=== PATIENT | male | born 1985 | race African-American/Black ===

== ENCOUNTER 2020-01-30 18:01 | Inpatient (IN) | payer OTHER ==
[2020-01-30 20:21] VITALS: BMI 24.0
--- NOTE | 2020-01-30 21:28 | HP ---
CIWA Score Nausea/Vomitin-Mild Nausea/No Vomiting Muscle Tremors: None Anxiety: 3 Agitation: 1-Slight > Activity Paroxysmal Sweats: No Perspiration Orientation: 1-Uncertain about Date Tacttile Disturbances: 0-None Auditory Disturbances: 0-None Visual Disturbances: 1-Very Mild Sensitivity Headache: 1-Very Mild CIWA-Ar Total Score: 8 - Admission Criteria OASAS Guidelines: Admission for Medically Managed Detox: Requires at least one of the followin. CIWA greater than 12 2. Seizures within the past 24 hours 3. Delirium tremens within the past 24 hours 4. Hallucinations within the past 24 hours 5. Acute intervention needed for co occurring medical disorder 6. Acute intervention needed for co occurring psychiatric disorder 7. Severe withdrawal that cannot be handled at a lower level of care (continued vomiting, continued diarrhea, abnormal vital signs) requiring intravenous medication and/or fluids 8. Admitting History and Physical - Smoking History Smoking history: Current every day smoker Have you smoked in the past 12 months: No Aproximately how many cigarettes per day: 30 Admission ROS [facility] Allergies/Adverse Reactions: Allergies Allergy/AdvReac Type Severity Reaction Status Date / Time No Known Allergies Allergy Verified 01/30/20 20:15 History of Present Illness: 34 Y.O. MALE REQUESTING DETOX FROM ALCOHOL USE , REPORTS 2 PINTS VODKA AND 2 LARGE CANS OF BEER . LATEST USE WAS TODAY 7 AM , FIRST AGE OF USE 12 , INCREASED SINCE AGE 20 , HAS HAD WITHDRAWAL SEIZURES, MOST RECENTLY 2 YEARS AGO , WAS ON MEDS IN THE PAST , STOPPED TAKING IT DUE TO " BAD REACTI ON" . REPORTS BLACKOUTS , OCCASIONAL FALLS , DENIES INJURIES TO SELF OR OTHERS. COCAINE : 1 GR /DAY SINCE AGE 20 VIA SMOKING NOW , INITIALLY VIA INHALATION UNTIL HIS 30'S CANNABIS : DAILY USE SINCE AGE 12 , STATES " IT HELPS TO CALM ME DOWN " TOBACCO : 2 PPD , REQUESTING NRT W/ PATCH pmhx : UMBILICAL HERNIA S/P SURGERY @ AGE 3 , HTN PSYCH : SAD ON HALDOL , DENIES SA/HI/GONZALEZ , ADMITS TO SI WITH NO PLAN IN THE PAST , DENIES CURRENT SI Exam Limitations: Clinical Condition - Review of Systems Constitutional: No Symptoms Reported EENT: reports: No Symptoms Reported, Other (GLASSES) Respiratory: reports: Shortness of Breath (WHEN SMOKING CRACK COCAINE) Cardiac: reports: No Symptoms Reported GI: reports: Nausea : reports: No Symptoms Reported Musculoskeletal: reports: Other (LEFT LATERAL CHEST WALL WITH DEEP INSPIRAION SINCE TODAY WHEN HE STOPPED DRINKING ALCOHOL.) Integumentary: reports: No Symptoms Reported Neuro: reports: Headache Endocrine: reports: No Symptoms Reported Hematology: reports: No Symptoms Reported Psychiatric: reports: Anxious, Disorientated Patient History - Patient Medical History Hx Asthma: No Hx Chronic Obstructive Pulmonary Disease (COPD): No Hx Cardiac Disorders: No Hx Hypertension: No Hx Seizures: No Hx Diabetes: No Hx Gastrointestinal Disorders: No Hx Genitourinary Disorders: No Hx Sexually Transmitted Disorders: No Hx Renal Disease (ESRD): No Hx Depression: Yes Hx Suicide Attempt: No Hx Schizophrenia: No - Patient Surgical History Past Surgical History: Yes Hx Neurologic Surgery: No Hx Cataract Extraction: No Hx Cardiac Surgery: No Hx Lung Surgery: No Hx Breast Surgery: No Hx Breast Biopsy: No Hx Abdominal Surgery: No Hx Appendectomy: No Hx Cholecystectomy: No Hx Genitourinary Surgery: No Hx Section: No Hx Orthopedic Surgery: No Other Surgical History: HERNIA @ 3YRS - PPD History Previous Implant?: Yes Documented Results: Positive w/o proof - Smoking Cessation Smoking history: Current every day smoker Have you smoked in the past 12 months: No Aproximately how many cigarettes per day: 30 Hx Chewing Tobacco Use: No Initiated information on smoking cessation: Yes 'Breaking Loose' booklet given: 01/30/20 - Substances abused Alcohol Substance route: Oral Frequency: Daily Amount used: LIQUOR- 2, BEER- 3 (24oz) Age of first use: 12 Date of last use: 01/30/20 Admission Physical Exam S - Vital Signs Vital Signs: Vital Signs - 24 hr 01/30/20 01/30/20 20:16 20:29 Temperature 97.3 F L 97.3 F L Pulse Rate 78 78 Respiratory 18 18 Rate Blood Pressure 129/81 129/81 - Physical General Appearance: Yes: Mild Distress, Anxious HEENTM: Yes: EOMI, Hearing grossly Normal, Normocephalic, Normal Voice Respiratory: Yes: Chest Non-Tender, No Respiratory Distress, No Accessory Muscle Use, Rales Neck: Yes: No masses,lesions,Nodules, Trachea in good position Cardiology: Yes: Regular Rhythm, Regular Rate, S1, S2 Abdominal: Yes: Non Tender, Soft Back: Yes: Normal Inspection Musculoskeletal: Yes: full range of Motion, Gait Steady Extremities: Yes: Normal Capillary Refill, Normal Inspection, Normal Range of Motion, Non-Tender Neurological: Yes: Alert, Disoriented, Depressed Affect Integumentary: Yes: Warm - Diagnostic (1) Alcohol use disorder Current Visit: Yes Status: Chronic (2) Cocaine abuse Current Visit: Yes Status: Chronic (3) Cannabis dependence Current Visit: Yes Status: Chronic (4) Nicotine dependence Current Visit: Yes Status: Chronic Qualifiers: Nicotine product type: cigarettes Breathalyzer - Breathalyzer Breathalyzer: 0 Urine Drug Screen - Test Device Lot number: [id number] Expiration date: 08/10/20 - Control Is test valid?: Yes - Results Drug screen NEGATIVE: No Urine drug screen results: THC-Marijuana, SMITH-Cocaine Inpatient Rehab Admission - Rehab Decision to Admit Inpatient rehab admission?: No
[2020-01-30] MEDS ORDERED: MENTHOL/PHENOL 1 EACH UD MM PRN (21:52)
[2020-01-30] MEDS ORDERED: MAG HYDROX/AL HYDROX/SIMETH 30 ML UNIT-DOSE CUP PO PRN (21:52)
[2020-01-30] MEDS ORDERED: NICOTINE POLACRILEX 2 MG GUM BUC PRN (21:52)
[2020-01-30] MEDS ORDERED: hydrOXYzine PAMOATE 25 MG CAPSULE (FP) PO PRN (21:52)
[2020-01-30] MEDS ORDERED: IBUPROFEN 400 MG TABLET (FP) PO PRN (21:52)
[2020-01-30] MEDS ORDERED: MAGNESIUM HYDROX 2400MG/30ML ORAL SUSPENSION 30 ML CUP PO PRN (21:52)
[2020-01-30] MEDS ORDERED: METHOCARBAMOL 500 MG TABLET PO PRN (21:52)
[2020-01-30] MEDS ORDERED: MAGNESIUM CITRATE 300 ML BOTTLE PO PRN (21:52)
[2020-01-30] MEDS ORDERED: ACETAMINOPHEN 325 MG TABLET (FP) PO PRN ×2 (21:52)
[2020-01-30] MEDS ORDERED: BISMUTH SUBSALICYLATE 524 MG/30 ML UD PO PRN (21:52)
[2020-01-30] MEDS ORDERED: MELATONIN 5 MG TABLETS PO SCH (22:00)
[2020-01-30] MEDS ORDERED: chlordiazePOXIDE HCL 10 MG CAPSULE PO PRN (22:01)
[2020-01-30] MEDS ORDERED: ONDANSETRON *ODT* 4 MG TABLET SL PRN (22:11)
[2020-01-30] MEDS ORDERED: chlordiazePOXIDE HCL 25 MG CAPSULE PO ONE (22:15)
[2020-01-30] MEDS: THIAMINE HCL 100 MG TABLET (FP) PO SCH (23:47)
[2020-01-31] MEDS: chlordiazePOXIDE HCL 25 MG CAPSULE PO SCH ×3 (06:34→21:37)
[2020-01-31 10:12] LABS: HEMATOCRIT 40.8 % (35.4-49); HEMOGLOBIN 13.7 GM/dL (11.7-16.9); MCH 28.7 pg (25.7-33.7); MCHC 33.6 g/dl (32.0-35.9); MEAN CELL VOLUME 85.6 fl (80-96); MEAN PLT VOLUME 7.7 fl (7.5-11.1); PLATELET COUNT 274 K/MM3 (134-434); RBC 4.76 M/mm3 (4.00-5.60); RDW 15.2 % (11.9-15.9); WHITE BLOOD COUNT 4.1 K/mm3 (4.0-10.0)
[2020-01-31 10:22] LABS: ALBUMIN 3.6 g/dl (3.4-5.0); BILIRUBIN,TOTAL 1.2 mg/dL (0.2-1); BLOOD UREA NITROGEN 19.8 mg/dL (7-18); CALCIUM 8.6 mg/dL (8.5-10.1); CREATININE 1.2 mg/dL (0.55-1.3); POTASSIUM 3.9 mmol/L (3.5-5.1); TOT PROT 6.6 g/dl (6.4-8.2)
[2020-01-31] MEDS: NICOTINE 21 MG/24 HOURS TOPICAL PATCH TD SCH (10:32)
[2020-01-31] MEDS: amLODIPine BESYLATE 10 MG TABLET (FP) PO SCH (10:32)
[2020-01-31] MEDS: PRENATAL VITAMINS W/ FOLIC ACID TABLET (FP) PO SCH (10:32)
--- NOTE | 2020-01-31 10:34 | PN ---
S CIWA - CIWA Score Nausea/Vomitin Muscle Tremors: 2 Anxiety: 2 Agitation: 2 Paroxysmal Sweats: No Perspiration Orientation: 0-Oriented Tacttile Disturbances: 1-Very Mild Itch/Numbness Auditory Disturbances: 0-None Visual Disturbances: 0-None Headache: 1-Very Mild CIWA-Ar Total Score: 10 S Progress Note (SOAP) Subjective: alert,irritable,anxious,interrupted sleep,tremor,aching pain in the body Objective: 01/31/20 10:32 Vital Signs Temperature 97.3 F L 01/31/20 05:32 Pulse Rate 49 L 01/31/20 05:32 Respiratory Rate 18 01/31/20 05:32 Blood Pressure 115/61 01/31/20 05:32 O2 Sat by Pulse Oximetry (%) 97 01/31/20 05:32 Laboratory Last Values WBC 4.1 K/mm3 (4.0-10.0) 01/31/20 08:00 RBC 4.76 M/mm3 (4.00-5.60) 01/31/20 08:00 Hgb 13.7 GM/dL (11.7-16.9) 01/31/20 08:00 Hct 40.8 % (35.4-49) 01/31/20 08:00 MCV 85.6 fl (80-96) 01/31/20 08:00 MCH 28.7 pg (25.7-33.7) 01/31/20 08:00 MCHC 33.6 g/dl (32.0-35.9) 01/31/20 08:00 RDW 15.2 % (11.9-15.9) 01/31/20 08:00 Plt Count 274 K/MM3 (134-434) 01/31/20 08:00 MPV 7.7 fl (7.5-11.1) 01/31/20 08:00 Sodium 145 mmol/L (136-145) 01/31/20 08:00 Potassium 3.9 mmol/L (3.5-5.1) 01/31/20 08:00 Chloride 108 mmol/L (98-107) H 01/31/20 08:00 Carbon Dioxide 30 mmol/L (21-32) 01/31/20 08:00 Anion Gap 7 MMOL/L (8-16) L 01/31/20 08:00 BUN 19.8 mg/dL (7-18) H 01/31/20 08:00 Creatinine 1.2 mg/dL (0.55-1.3) 01/31/20 08:00 Est GFR (CKD-EPI)AfAm 90.26 01/31/20 08:00 Est GFR (CKD-EPI)NonAf 77.87 01/31/20 08:00 Random Glucose 113 mg/dL (74-106) H 01/31/20 08:00 Calcium 8.6 mg/dL (8.5-10.1) 01/31/20 08:00 Total Bilirubin 1.2 mg/dL (0.2-1) H 01/31/20 08:00 AST 36 U/L (15-37) 01/31/20 08:00 ALT 27 U/L (13-61) 01/31/20 08:00 Alkaline Phosphatase 90 U/L (45-117) 01/31/20 08:00 Total Protein 6.6 g/dl (6.4-8.2) 01/31/20 08:00 Albumin 3.6 g/dl (3.4-5.0) 01/31/20 08:00 Assessment: 01/31/20 10:32 withdrawal symptom Plan: continue detox librium regime,fasting glucose,blirubin,bmp in am,encourage oral fluid,hydration
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
--- NOTE | 2020-01-31 12:14 | EKG ---
Test Reason : Blood Pressure : / mmHG Vent. Rate : 066 BPM Atrial Rate : 066 BPM P-R Int : 174 ms QRS Dur : 102 ms QT Int : 426 ms P-R-T Axes : 052 076 037 degrees QTc Int : 446 ms NORMAL SINUS RHYTHM NORMAL ECG NO PREVIOUS ECGS AVAILABLE Confirmed by CAROLYN ROCK, VILMA ([id number]) on 01/31/2020 12:14:14 PM Referred By: Thomas Dill Confirmed By:VILMA LEON MD
[2020-01-31] MEDS: HALOPERIDOL 5 MG TABLET PO SCH ×2 (12:53→21:37)
[2020-01-31] MEDS: TRIHEXYPHENIDYL HCL 2 MG TABLET PO SCH ×2 (14:30→21:39)
[2020-01-31] MEDS: THIAMINE HCL 100 MG TABLET (FP) PO SCH (21:37)
[2020-01-31] MEDS: traZODone HCL 50 MG TABLET (FP) PO SCH (21:37)
[2020-02-01] MEDS ORDERED: chlordiazePOXIDE HCL 10 MG CAPSULE PO PRN
[2020-02-01] MEDS: chlordiazePOXIDE 5 MG CAPSULE PO SCH ×3 (06:17→22:11)
[2020-02-01 10:39] LABS: BLOOD UREA NITROGEN 10.9 mg/dL (7-18); POTASSIUM 4.7 mmol/L (3.5-5.1)
[2020-02-01 10:41] LABS: BILIRUBIN,TOTAL 0.8 mg/dL (0.2-1)
[2020-02-01] MEDS: amLODIPine BESYLATE 10 MG TABLET (FP) PO SCH (11:23)
[2020-02-01] MEDS: PRENATAL VITAMINS W/ FOLIC ACID TABLET (FP) PO SCH (11:24)
[2020-02-01] MEDS: TRIHEXYPHENIDYL HCL 2 MG TABLET PO SCH ×2 (11:24→22:10)
[2020-02-01] MEDS: NICOTINE 21 MG/24 HOURS TOPICAL PATCH TD SCH (11:24)
[2020-02-01] MEDS: HALOPERIDOL 5 MG TABLET PO SCH ×2 (11:24→22:10)
--- NOTE | 2020-02-01 12:40 | PN ---
[facility] CIWA - CIWA Score Nausea/Vomitin-Mild Nausea/No Vomiting Muscle Tremors: 2 Anxiety: 2 Agitation: 2 Paroxysmal Sweats: No Perspiration Orientation: 0-Oriented Tacttile Disturbances: 1-Very Mild Itch/Numbness Auditory Disturbances: 0-None Visual Disturbances: 0-None Headache: 2-Mild CIWA-Ar Total Score: 10 S Progress Note (SOAP) Subjective: alert,irritable,anxious,interrupted sleep,aching pain in the body Objective: 02/01/20 12:38 Vital Signs Temperature 97.1 F L 02/01/20 05:10 Pulse Rate 68 02/01/20 05:10 Respiratory Rate 16 02/01/20 05:10 Blood Pressure 116/68 02/01/20 05:10 O2 Sat by Pulse Oximetry (%) 100 02/01/20 05:10 Laboratory Last Values WBC 4.1 K/mm3 (4.0-10.0) 01/31/20 08:00 RBC 4.76 M/mm3 (4.00-5.60) 01/31/20 08:00 Hgb 13.7 GM/dL (11.7-16.9) 01/31/20 08:00 Hct 40.8 % (35.4-49) 01/31/20 08:00 MCV 85.6 fl (80-96) 01/31/20 08:00 MCH 28.7 pg (25.7-33.7) 01/31/20 08:00 MCHC 33.6 g/dl (32.0-35.9) 01/31/20 08:00 RDW 15.2 % (11.9-15.9) 01/31/20 08:00 Plt Count 274 K/MM3 (134-434) 01/31/20 08:00 MPV 7.7 fl (7.5-11.1) 01/31/20 08:00 Sodium 142 mmol/L (136-145) 02/01/20 08:15 Potassium 4.7 mmol/L (3.5-5.1) 02/01/20 08:15 Chloride 108 mmol/L (98-107) H 02/01/20 08:15 Carbon Dioxide 27 mmol/L (21-32) 02/01/20 08:15 Anion Gap 7 MMOL/L (8-16) L 02/01/20 08:15 BUN 10.9 mg/dL (7-18) 02/01/20 08:15 Creatinine 1.0 mg/dL (0.55-1.3) 02/01/20 08:15 Est GFR (CKD-EPI)AfAm 112.51 02/01/20 08:15 Est GFR (CKD-EPI)NonAf 97.08 02/01/20 08:15 Random Glucose 63 mg/dL (74-106) L 02/01/20 08:15 Fasting Glucose 63 mg/dL (74-106) L 02/01/20 08:15 Calcium 9.0 mg/dL (8.5-10.1) 02/01/20 08:15 Total Bilirubin 0.8 mg/dL (0.2-1) 02/01/20 08:15 AST 36 U/L (15-37) 01/31/20 08:00 ALT 27 U/L (13-61) 01/31/20 08:00 Alkaline Phosphatase 90 U/L (45-117) 01/31/20 08:00 Total Protein 6.6 g/dl (6.4-8.2) 01/31/20 08:00 Albumin 3.6 g/dl (3.4-5.0) 01/31/20 08:00 Syphilis Serology Non-reactive (NONREACTIVE) 01/31/20 08:00 Assessment: 02/01/20 12:39 withdrawal symptom Plan: continue detox librium regimen
[2020-02-01] MEDS: THIAMINE HCL 100 MG TABLET (FP) PO SCH (22:10)
[2020-02-01] MEDS: traZODone HCL 50 MG TABLET (FP) PO SCH (22:11)
[2020-02-02] MEDS ORDERED: chlordiazePOXIDE HCL 10 MG CAPSULE PO SCH (05:00)
[2020-02-02 06:01] VITALS: TEMP 97.1
[2020-02-02] MEDS: NICOTINE 21 MG/24 HOURS TOPICAL PATCH TD SCH (09:08)
[2020-02-02] MEDS: amLODIPine BESYLATE 10 MG TABLET (FP) PO SCH (09:09)
[2020-02-02] MEDS: PRENATAL VITAMINS W/ FOLIC ACID TABLET (FP) PO SCH (09:09)
[2020-02-02] MEDS: HALOPERIDOL 5 MG TABLET PO SCH (09:09)
[2020-02-02] MEDS: TRIHEXYPHENIDYL HCL 2 MG TABLET PO SCH (09:09)
[2020-02-02 09:25] VITALS: BP 122/70; PULSE 73
--- NOTE | 2020-02-02 12:02 | PN ---
[facility] CIWA - CIWA Score Nausea/Vomitin-No Nausea/No Vomiting Muscle Tremors: None Anxiety: 2 Agitation: 1-Slight > Activity Paroxysmal Sweats: No Perspiration Orientation: 0-Oriented Tacttile Disturbances: 0-None Auditory Disturbances: 1-Very Mild Visual Disturbances: 0-None Headache: 0-None Present CIWA-Ar Total Score: 4 S Progress Note (SOAP) Subjective: Complaints of mild anxiety and irritability. Objective: 02/02/20 12:00 Vital Signs 02/02/20 02/02/20 05:04 08:50 Temperature 97.1 F L 97.1 F L Pulse Rate 59 L 73 Respiratory 16 18 Rate Blood Pressure 103/66 122/70 O2 Sat by Pulse 99 99 Oximetry (%) Laboratory Last Values WBC 4.1 K/mm3 (4.0-10.0) 01/31/20 08:00 RBC 4.76 M/mm3 (4.00-5.60) 01/31/20 08:00 Hgb 13.7 GM/dL (11.7-16.9) 01/31/20 08:00 Hct 40.8 % (35.4-49) 01/31/20 08:00 MCV 85.6 fl (80-96) 01/31/20 08:00 MCH 28.7 pg (25.7-33.7) 01/31/20 08:00 MCHC 33.6 g/dl (32.0-35.9) 01/31/20 08:00 RDW 15.2 % (11.9-15.9) 01/31/20 08:00 Plt Count 274 K/MM3 (134-434) 01/31/20 08:00 MPV 7.7 fl (7.5-11.1) 01/31/20 08:00 Sodium 142 mmol/L (136-145) 02/01/20 08:15 Potassium 4.7 mmol/L (3.5-5.1) 02/01/20 08:15 Chloride 108 mmol/L (98-107) H 02/01/20 08:15 Carbon Dioxide 27 mmol/L (21-32) 02/01/20 08:15 Anion Gap 7 MMOL/L (8-16) L 02/01/20 08:15 BUN 10.9 mg/dL (7-18) 02/01/20 08:15 Creatinine 1.0 mg/dL (0.55-1.3) 02/01/20 08:15 Est GFR (CKD-EPI)AfAm 112.51 02/01/20 08:15 Est GFR (CKD-EPI)NonAf 97.08 02/01/20 08:15 Random Glucose 63 mg/dL (74-106) L 02/01/20 08:15 Fasting Glucose 63 mg/dL (74-106) L 02/01/20 08:15 Calcium 9.0 mg/dL (8.5-10.1) 02/01/20 08:15 Total Bilirubin 0.8 mg/dL (0.2-1) 02/01/20 08:15 AST 36 U/L (15-37) 01/31/20 08:00 ALT 27 U/L (13-61) 01/31/20 08:00 Alkaline Phosphatase 90 U/L (45-117) 01/31/20 08:00 Total Protein 6.6 g/dl (6.4-8.2) 01/31/20 08:00 Albumin 3.6 g/dl (3.4-5.0) 01/31/20 08:00 Syphilis Serology Non-reactive (NONREACTIVE) 01/31/20 08:00 COVID-19 (JASWANT) Not detected (Not Detected) 01/30/20 10:35 Labs noted. Assessment: 02/02/20 12:01 Alert and oriented x3, in no acute respiratory distress. Full ROM, ambulatory without assistance. Mild withdrawal symptoms. For D/C in am. Plan: Continue detox protocol. Discharge in AM
--- NOTE | 2020-02-02 14:26 | DS ---
[facility] Detox Discharge Summary Admission Date: 01/30/20 Discharge Date: 02/02/20 - History Present History: Alcohol Dependence, Cannabis Dependence, Cocaine Dependence Additional Comments: Alert and oriented x3, in no acute respiratory distress. Full ROM, ambulatory without assistance. Mild withdrawal symptoms but stable for discharge today For D/C in am but wants to leave today. Pertinent Past History: History of HTN, Umbilical hernia repair, alcohol, cannabis and cocaine use disorder. - Physical Exam Results Vital Signs: Vital Signs Temperature 97.1 F L 02/02/20 08:50 Pulse Rate 73 02/02/20 08:50 Respiratory Rate 18 02/02/20 08:50 Blood Pressure 122/70 02/02/20 08:50 O2 Sat by Pulse Oximetry (%) 99 02/02/20 08:50 Vital Signs 02/02/20 08:50 Temperature 97.1 F L Pulse Rate 73 Respiratory 18 Rate Blood Pressure 122/70 O2 Sat by Pulse 99 Oximetry (%) Laboratory Last Values WBC 4.1 K/mm3 (4.0-10.0) 01/31/20 08:00 RBC 4.76 M/mm3 (4.00-5.60) 01/31/20 08:00 Hgb 13.7 GM/dL (11.7-16.9) 01/31/20 08:00 Hct 40.8 % (35.4-49) 01/31/20 08:00 MCV 85.6 fl (80-96) 01/31/20 08:00 MCH 28.7 pg (25.7-33.7) 01/31/20 08:00 MCHC 33.6 g/dl (32.0-35.9) 01/31/20 08:00 RDW 15.2 % (11.9-15.9) 01/31/20 08:00 Plt Count 274 K/MM3 (134-434) 01/31/20 08:00 MPV 7.7 fl (7.5-11.1) 01/31/20 08:00 Sodium 142 mmol/L (136-145) 02/01/20 08:15 Potassium 4.7 mmol/L (3.5-5.1) 02/01/20 08:15 Chloride 108 mmol/L (98-107) H 02/01/20 08:15 Carbon Dioxide 27 mmol/L (21-32) 02/01/20 08:15 Anion Gap 7 MMOL/L (8-16) L 02/01/20 08:15 BUN 10.9 mg/dL (7-18) 02/01/20 08:15 Creatinine 1.0 mg/dL (0.55-1.3) 02/01/20 08:15 Est GFR (CKD-EPI)AfAm 112.51 02/01/20 08:15 Est GFR (CKD-EPI)NonAf 97.08 02/01/20 08:15 Random Glucose 63 mg/dL (74-106) L 02/01/20 08:15 Fasting Glucose 63 mg/dL (74-106) L 02/01/20 08:15 Calcium 9.0 mg/dL (8.5-10.1) 02/01/20 08:15 Total Bilirubin 0.8 mg/dL (0.2-1) 02/01/20 08:15 AST 36 U/L (15-37) 01/31/20 08:00 ALT 27 U/L (13-61) 01/31/20 08:00 Alkaline Phosphatase 90 U/L (45-117) 01/31/20 08:00 Total Protein 6.6 g/dl (6.4-8.2) 01/31/20 08:00 Albumin 3.6 g/dl (3.4-5.0) 01/31/20 08:00 Syphilis Serology Non-reactive (NONREACTIVE) 01/31/20 08:00 COVID-19 (JASWANT) Not detected (Not Detected) 01/30/20 10:35 Labs noted. Pertinent Admission Physical Exam Findings: Withdrawal symptoms. - Treatment Hospital Course: Detox Protocol Followed, Detoxed Safely, Responded well, Discharged Condition Good - Medication Discharge Medications: Ambulatory Orders Amlodipine Besylate [Norvasc -] 10 mg PO DAILY 01/30/20 Haloperidol [Haldol -] 5 mg PO BID 01/30/20 traZODone HCL [Trazodone HCl] 100 mg PO HS 01/30/20 - Diagnosis (1) Alcohol dependence with withdrawal, uncomplicated Current Visit: Yes Status: Acute (2) Cannabis dependence Current Visit: Yes Status: Chronic (3) Cocaine dependence Current Visit: Yes Status: Chronic (4) HTN (hypertension) Current Visit: Yes Status: Chronic - AMA Did Patient Leave Against Medical Advice: No
[2020-02-03] MEDS ORDERED: chlordiazePOXIDE HCL 10 MG CAPSULE PO ONE (05:00)
== END 2020-02-02 13:15 | disposition home or self-care (01) | DRG 897 ==
LOC: YASAS 18:01 → Y6N 22:02
PROVIDERS: ADMIT Allergy & Immunology; ATTEND Allergy & Immunology
PROC: HZ2ZZZZ Detoxification Services for Substance Abuse Treatment (ICD-10-PCS; principal; 2020-01-30)
DX: F10.230 Alcohol dependence with withdrawal, uncomplicated (principal); F14.20 Cocaine dependence, uncomplicated; F19.280 Other psychoactive substance dependence with psychoactive substance-induced anxiety disorder; F19.282 Other psychoactive substance dependence with psychoactive substance-induced sleep disorder; F12.20 Cannabis dependence, uncomplicated; F17.210 Nicotine dependence, cigarettes, uncomplicated; F25.9 Schizoaffective disorder, unspecified; I10 Essential (primary) hypertension; R76.11 Nonspecific reaction to tuberculin skin test without active tuberculosis; Z62.810 Personal history of physical and sexual abuse in childhood; Z86.69 Personal history of other diseases of the nervous system and sense organs; Z98.890 Other specified postprocedural states; Z88.8 Allergy status to other drugs, medicaments and biological substances; Z56.0 Unemployment, unspecified; Z59.0 Homelessness
CPT/HCPCS: 36415; 71046-TC-FY; 80048; 80053; 82247; 82947; 85027; 86780; 93005; 93010; U0003

== ENCOUNTER 2021-08-07 14:08 | Inpatient (IN) | payer OTHER ==
[2021-08-07] MEDS ORDERED: BISMUTH SUBSALICYLATE 524 MG/30 ML PO PRN (16:51)
[2021-08-07] MEDS ORDERED: chlordiazePOXIDE HCL 25 MG CAPSULE PO PRN (16:51)
[2021-08-07] MEDS ORDERED: MAGNESIUM CITRATE 300 ML BOTTLE PO PRN (16:51)
[2021-08-07] MEDS ORDERED: MAGNESIUM HYDROX 2400MG/30ML ORAL SUSPENSION 30 ML CUP PO PRN (16:51)
[2021-08-07] MEDS ORDERED: cloNIDine HCL 0.1 MG TABLET PO PRN (16:51)
[2021-08-07] MEDS ORDERED: NICOTINE 10 MG CARTRIDGE (INHALER) IH PRN (16:51)
[2021-08-07] MEDS ORDERED: MENTHOL/PHENOL 1 EACH UD MM PRN (16:51)
[2021-08-07] MEDS ORDERED: MAG HYDROX/AL HYDROX/SIMETH 30 ML UNIT-DOSE CUP PO PRN (16:51)
[2021-08-07] MEDS ORDERED: methaDONE HCL 10 MG TABLET (FOR DETOX USE ONLY) PO ONE (16:51)
[2021-08-07] MEDS ORDERED: ACETAMINOPHEN 325 MG TABLET (FP) PO PRN (16:51)
[2021-08-07] MEDS ORDERED: ONDANSETRON *ODT* 4 MG TABLET SL PRN (16:51)
[2021-08-07] MEDS ORDERED: hydrOXYzine PAMOATE 25 MG CAPSULE (FP) PO SCH (18:00)
[2021-08-07 18:27] VITALS: BMI 24.7
[2021-08-07] MEDS ORDERED: MELATONIN 5 MG TABLETS PO SCH (22:00)
[2021-08-07] MEDS: THIAMINE HCL 100 MG TABLET (FP) PO SCH (22:30)
[2021-08-07] MEDS: chlordiazePOXIDE HCL 25 MG CAPSULE PO SCH (22:30)
[2021-08-08] MEDS: chlordiazePOXIDE HCL 25 MG CAPSULE PO SCH ×4 (06:32→22:47)
[2021-08-08] MEDS ORDERED: methaDONE HCL 10 MG TABLET (FOR DETOX USE ONLY) ONE (09:41)
[2021-08-08] MEDS: METHOCARBAMOL 500 MG TABLET PO PRN (11:04)
[2021-08-08] MEDS: PRENATAL VITAMINS W/ FOLIC ACID TABLET (FP) PO SCH (11:04)
[2021-08-08] MEDS: amLODIPine BESYLATE 10 MG TABLET (FP) PO SCH (11:04)
[2021-08-08] MEDS: buPROPion HCL 75 MG TABLET PO SCH (11:39)
[2021-08-08] MEDS: ACETAMINOPHEN 325 MG TABLET (FP) PO PRN (17:26)
[2021-08-08] MEDS: THIAMINE HCL 100 MG TABLET (FP) PO SCH (22:46)
[2021-08-08] MEDS: IBUPROFEN 400 MG TABLET (FP) PO PRN (22:49)
[2021-08-09] MEDS: METHOCARBAMOL 500 MG TABLET PO PRN ×2 (03:10→22:26)
[2021-08-09] MEDS: chlordiazePOXIDE HCL 25 MG CAPSULE PO SCH ×4 (06:04→22:26)
[2021-08-09] MEDS ORDERED: methaDONE HCL 10 MG TABLET (FOR DETOX USE ONLY) PO ONE (10:00)
[2021-08-09] MEDS: buPROPion HCL 75 MG TABLET PO SCH (10:23)
[2021-08-09] MEDS: amLODIPine BESYLATE 10 MG TABLET (FP) PO SCH (10:23)
[2021-08-09] MEDS: PRENATAL VITAMINS W/ FOLIC ACID TABLET (FP) PO SCH (10:23)
[2021-08-09 12:04] LABS: HEMATOCRIT 40.6 % (35.4-49); HEMOGLOBIN 13.9 GM/dL (11.7-16.9); MCH 29.1 pg (25.7-33.7); MCHC 34.2 g/dl (32.0-35.9); PLATELET COUNT 289 10^3/uL (134-434); RBC 4.77 M/mm3 (4.00-5.60); RDW 14.4 % (11.9-15.9); WHITE BLOOD COUNT 4.2 K/mm3 (4.0-10.0)
[2021-08-09 12:15] LABS: CALCIUM 8.8 mg/dL (8.5-10.1)
[2021-08-09 12:20] LABS: BILIRUBIN,TOTAL 0.4 mg/dL (0.2-1); TOT PROT 7.3 g/dl (6.4-8.2)
[2021-08-09] MEDS: THIAMINE HCL 100 MG TABLET (FP) PO SCH (22:25)
[2021-08-09] MEDS: IBUPROFEN 400 MG TABLET (FP) PO PRN (22:28)
[2021-08-10] MEDS ORDERED: chlordiazePOXIDE HCL 10 MG CAPSULE PO PRN
[2021-08-10] MEDS: chlordiazePOXIDE HCL 10 MG CAPSULE PO SCH ×4 (06:09→22:05)
[2021-08-10] MEDS ORDERED: methaDONE HCL 10 MG TABLET (FOR DETOX USE ONLY) ONE (09:57)
[2021-08-10] MEDS: amLODIPine BESYLATE 10 MG TABLET (FP) PO SCH (10:13)
[2021-08-10] MEDS: PRENATAL VITAMINS W/ FOLIC ACID TABLET (FP) PO SCH (10:13)
[2021-08-10] MEDS: buPROPion HCL 75 MG TABLET PO SCH (10:14)
[2021-08-10] MEDS: THIAMINE HCL 100 MG TABLET (FP) PO SCH (22:05)
[2021-08-11] MEDS: chlordiazePOXIDE HCL 10 MG CAPSULE PO SCH ×2 (05:30→17:23)
[2021-08-11] MEDS: ACETAMINOPHEN 325 MG TABLET (FP) PO PRN (05:31)
[2021-08-11] MEDS ORDERED: methaDONE HCL 10 MG TABLET (FOR DETOX USE ONLY) PO ONE (10:00)
[2021-08-11] MEDS: buPROPion HCL 75 MG TABLET PO SCH (10:50)
[2021-08-11] MEDS: PRENATAL VITAMINS W/ FOLIC ACID TABLET (FP) PO SCH (10:52)
[2021-08-11] MEDS: amLODIPine BESYLATE 10 MG TABLET (FP) PO SCH (10:52)
[2021-08-11] MEDS: THIAMINE HCL 100 MG TABLET (FP) PO SCH (22:28)
[2021-08-11] MEDS: METHOCARBAMOL 500 MG TABLET PO PRN (22:31)
[2021-08-12] MEDS ORDERED: chlordiazePOXIDE HCL 10 MG CAPSULE PO ONE (05:00)
[2021-08-12 08:40] VITALS: BP 134/72; PULSE 84; TEMP 96.7
[2021-08-12] MEDS: buPROPion HCL 75 MG TABLET PO SCH (10:37)
[2021-08-12] MEDS: PRENATAL VITAMINS W/ FOLIC ACID TABLET (FP) PO SCH (10:37)
[2021-08-12] MEDS: amLODIPine BESYLATE 10 MG TABLET (FP) PO SCH (10:38)
== END 2021-08-12 12:28 | disposition home or self-care (01) | DRG 897 ==
LOC: YASAS 14:08 → Y3N 18:00
PROVIDERS: ADMIT Allergy & Immunology; ATTEND Allergy & Immunology
PROC: HZ2ZZZZ Detoxification Services for Substance Abuse Treatment (ICD-10-PCS; principal; 2021-08-07)
DX: F11.23 Opioid dependence with withdrawal (principal); F14.20 Cocaine dependence, uncomplicated; F19.280 Other psychoactive substance dependence with psychoactive substance-induced anxiety disorder; F10.230 Alcohol dependence with withdrawal, uncomplicated; F12.20 Cannabis dependence, uncomplicated; F17.210 Nicotine dependence, cigarettes, uncomplicated; F25.9 Schizoaffective disorder, unspecified; F43.10 Post-traumatic stress disorder, unspecified; F41.8 Other specified anxiety disorders; F32.A Depression, unspecified; Z62.810 Personal history of physical and sexual abuse in childhood; Z86.59 Personal history of other mental and behavioral disorders; Z86.69 Personal history of other diseases of the nervous system and sense organs; Z88.8 Allergy status to other drugs, medicaments and biological substances
CPT/HCPCS: 36415; 71045-TC-FY; 80053; 80164; 85027; 86780; C9803; J0735; U0003; U0005

== ENCOUNTER 2021-11-08 13:19 | Inpatient (IN) | payer OTHER ==
[2021-11-08 15:39] VITALS: BMI 23.7
[2021-11-08] MEDS ORDERED: BISMUTH SUBSALICYLATE 524 MG/30 ML PO PRN (19:40)
[2021-11-08] MEDS ORDERED: NICOTINE POLACRILEX 2 MG GUM BUC PRN (19:40)
[2021-11-08] MEDS ORDERED: MAGNESIUM HYDROX 2400MG/30ML ORAL SUSPENSION 30 ML CUP PO PRN (19:40)
[2021-11-08] MEDS ORDERED: MAG HYDROX/AL HYDROX/SIMETH 30 ML UNIT-DOSE CUP PO PRN (19:40)
[2021-11-08] MEDS ORDERED: DICYCLOMINE HCL 10 MG CAPSULE PO PRN (19:40)
[2021-11-08] MEDS ORDERED: ACETAMINOPHEN 325 MG TABLET (FP) PO PRN (19:40)
[2021-11-08] MEDS ORDERED: LOPERAMIDE HCL 2 MG CAPSULE PO PRN (19:40)
[2021-11-08] MEDS ORDERED: MAGNESIUM CITRATE 300 ML BOTTLE PO PRN (19:40)
[2021-11-08] MEDS ORDERED: chlordiazePOXIDE HCL 25 MG CAPSULE PO PRN (19:40)
[2021-11-08] MEDS ORDERED: BENZOCAINE/MENTHOL (CHLORASEPTIC ) LOZENGE MM PRN (19:40)
[2021-11-08] MEDS ORDERED: ONDANSETRON *ODT* 4 MG TABLET SL PRN (19:40)
[2021-11-08] MEDS ORDERED: chlordiazePOXIDE HCL 25 MG CAPSULE PO ONE (19:40)
[2021-11-08] MEDS: chlordiazePOXIDE HCL 25 MG CAPSULE PO SCH (22:27)
[2021-11-08] MEDS: DIVALPROEX SODIUM 500 MG TABLET E.C. PO SCH (22:27)
[2021-11-08] MEDS: METHOCARBAMOL 500 MG TABLET PO PRN (22:27)
[2021-11-08] MEDS: BACITRACIN 0.9 GM PACKET TP SCH (22:27)
[2021-11-08] MEDS: THIAMINE HCL 100 MG TABLET (FP) PO SCH (22:27)
[2021-11-09] MEDS: chlordiazePOXIDE HCL 25 MG CAPSULE PO SCH ×4 (06:28→22:10)
[2021-11-09] MEDS: BACITRACIN 0.9 GM PACKET TP SCH ×2 (10:25→22:10)
[2021-11-09] MEDS: DIVALPROEX SODIUM 250 MG TABLET E.C. PO SCH (10:25)
[2021-11-09] MEDS: PRENATAL VITAMINS W/ FOLIC ACID TABLET (FP) PO SCH (10:25)
[2021-11-09] MEDS: amLODIPine BESYLATE 5 MG TABLET (FP) PO SCH (10:25)
[2021-11-09] MEDS: IBUPROFEN 400 MG TABLET (FP) PO PRN (10:28)
[2021-11-09 12:30] LABS: HEMATOCRIT 40.3 % (35.4-49); HEMOGLOBIN 13.8 GM/dL (11.7-16.9); MCH 28.8 pg (25.7-33.7); MCHC 34.3 g/dl (32.0-35.9); MEAN PLT VOLUME 7.4 fl (7.5-11.1); PLATELET COUNT 318 10^3/uL (134-434); RDW 15.8 % (11.9-15.9); WHITE BLOOD COUNT 6.8 K/mm3 (4.0-10.0)
[2021-11-09 13:16] LABS: ALBUMIN 3.6 g/dl (3.4-5.0); BLOOD UREA NITROGEN 14.8 mg/dL (7-18); CALCIUM 8.9 mg/dL (8.5-10.1)
[2021-11-09 13:19] LABS: CREATININE 0.8 mg/dL (0.55-1.3)
[2021-11-09 13:20] LABS: BILIRUBIN,TOTAL 0.4 mg/dL (0.2-1)
[2021-11-09 13:21] LABS: TOT PROT 6.7 g/dl (6.4-8.2)
[2021-11-09] MEDS ORDERED: TRIHEXYPHENIDYL HCL 2 MG TABLET PO SCH (22:00)
[2021-11-09] MEDS: traZODone HCL 50 MG TABLET (FP) PO SCH (22:10)
[2021-11-09] MEDS: DIVALPROEX SODIUM 500 MG TABLET E.C. PO SCH (22:10)
[2021-11-09] MEDS: THIAMINE HCL 100 MG TABLET (FP) PO SCH (22:10)
[2021-11-09] MEDS: HALOPERIDOL 5 MG TABLET PO SCH (22:10)
[2021-11-09] MEDS: BENZTROPINE MESYLATE 1 MG TABLET PO SCH (22:10)
[2021-11-10] MEDS: chlordiazePOXIDE HCL 25 MG CAPSULE PO SCH ×4 (05:18→22:29)
[2021-11-10] MEDS: PRENATAL VITAMINS W/ FOLIC ACID TABLET (FP) PO SCH (10:14)
[2021-11-10] MEDS: HALOPERIDOL 5 MG TABLET PO SCH ×2 (10:14→22:27)
[2021-11-10] MEDS: DIVALPROEX SODIUM 250 MG TABLET E.C. PO SCH (10:14)
[2021-11-10] MEDS: BACITRACIN 0.9 GM PACKET TP SCH ×2 (10:14→22:27)
[2021-11-10] MEDS: METHOCARBAMOL 500 MG TABLET PO PRN ×2 (10:15→22:29)
[2021-11-10] MEDS: amLODIPine BESYLATE 5 MG TABLET (FP) PO SCH (10:15)
[2021-11-10] MEDS: BENZTROPINE MESYLATE 1 MG TABLET PO SCH ×2 (10:15→22:28)
[2021-11-10] MEDS: ACETAMINOPHEN 325 MG TABLET (FP) PO PRN (14:56)
[2021-11-10] MEDS: DIVALPROEX SODIUM 500 MG TABLET E.C. PO SCH (22:27)
[2021-11-10] MEDS: THIAMINE HCL 100 MG TABLET (FP) PO SCH (22:27)
[2021-11-10] MEDS: traZODone HCL 50 MG TABLET (FP) PO SCH (22:28)
[2021-11-11] MEDS ORDERED: chlordiazePOXIDE HCL 10 MG CAPSULE PO PRN
[2021-11-11 00:06] LABS: SARS-CoV-2 NAA Not Detected (Not Detected)
[2021-11-11] MEDS: chlordiazePOXIDE HCL 10 MG CAPSULE PO SCH ×4 (05:31→22:21)
[2021-11-11] MEDS: amLODIPine BESYLATE 5 MG TABLET (FP) PO SCH (10:07)
[2021-11-11] MEDS: BACITRACIN 0.9 GM PACKET TP SCH ×2 (10:07→22:20)
[2021-11-11] MEDS: PRENATAL VITAMINS W/ FOLIC ACID TABLET (FP) PO SCH (10:07)
[2021-11-11] MEDS: HALOPERIDOL 5 MG TABLET PO SCH ×2 (10:08→22:21)
[2021-11-11] MEDS: BENZTROPINE MESYLATE 1 MG TABLET PO SCH (10:08)
[2021-11-11] MEDS: DIVALPROEX SODIUM 250 MG TABLET E.C. PO SCH (10:08)
[2021-11-11] MEDS: METHOCARBAMOL 500 MG TABLET PO PRN (18:00)
[2021-11-11] MEDS: IBUPROFEN 400 MG TABLET (FP) PO PRN (20:32)
[2021-11-11] MEDS: NICOTINE 10 MG CARTRIDGE (INHALER) IH PRN (20:35)
[2021-11-11] MEDS: TRIHEXYPHENIDYL HCL 2 MG TABLET PO SCH (22:21)
[2021-11-11] MEDS: DIVALPROEX SODIUM 500 MG TABLET E.C. PO SCH (22:21)
[2021-11-11] MEDS: THIAMINE HCL 100 MG TABLET (FP) PO SCH (22:21)
[2021-11-11] MEDS: traZODone HCL 50 MG TABLET (FP) PO SCH (22:21)
[2021-11-11] MEDS: ACETAMINOPHEN 325 MG TABLET (FP) PO PRN (23:15)
[2021-11-12] MEDS: chlordiazePOXIDE HCL 10 MG CAPSULE PO SCH ×2 (05:16→17:12)
[2021-11-12] MEDS: NICOTINE 10 MG CARTRIDGE (INHALER) IH PRN ×2 (09:14→21:28)
[2021-11-12] MEDS: HALOPERIDOL 5 MG TABLET PO SCH ×2 (10:39→22:25)
[2021-11-12] MEDS: BACITRACIN 0.9 GM PACKET TP SCH ×2 (10:39→22:25)
[2021-11-12] MEDS: DIVALPROEX SODIUM 250 MG TABLET E.C. PO SCH (10:39)
[2021-11-12] MEDS: PRENATAL VITAMINS W/ FOLIC ACID TABLET (FP) PO SCH (10:39)
[2021-11-12] MEDS: buPROPion HCL 75 MG TABLET PO SCH ×2 (10:39→17:11)
[2021-11-12] MEDS: amLODIPine BESYLATE 5 MG TABLET (FP) PO SCH (10:39)
[2021-11-12] MEDS: TRIHEXYPHENIDYL HCL 2 MG TABLET PO SCH ×2 (10:39→22:25)
[2021-11-12] MEDS: DIVALPROEX SODIUM 500 MG TABLET E.C. PO SCH (22:25)
[2021-11-12] MEDS: traZODone HCL 50 MG TABLET (FP) PO SCH (22:25)
[2021-11-12] MEDS: THIAMINE HCL 100 MG TABLET (FP) PO SCH (22:25)
[2021-11-12] MEDS: METHOCARBAMOL 500 MG TABLET PO PRN (22:27)
[2021-11-13] MEDS ORDERED: chlordiazePOXIDE HCL 10 MG CAPSULE PO ONE (05:00)
[2021-11-13] MEDS: NICOTINE 10 MG CARTRIDGE (INHALER) IH PRN (06:31)
[2021-11-13 08:49] VITALS: BP 137/82; PULSE 93; TEMP 97.8
[2021-11-13] MEDS: BACITRACIN 0.9 GM PACKET TP SCH (10:04)
[2021-11-13] MEDS: amLODIPine BESYLATE 5 MG TABLET (FP) PO SCH (10:04)
[2021-11-13] MEDS: DIVALPROEX SODIUM 250 MG TABLET E.C. PO SCH (10:04)
[2021-11-13] MEDS: TRIHEXYPHENIDYL HCL 2 MG TABLET PO SCH (10:05)
[2021-11-13] MEDS: PRENATAL VITAMINS W/ FOLIC ACID TABLET (FP) PO SCH (10:05)
[2021-11-13] MEDS: buPROPion HCL 75 MG TABLET PO SCH (10:05)
[2021-11-13] MEDS: HALOPERIDOL 5 MG TABLET PO SCH (10:05)
== END 2021-11-13 11:56 | disposition other institution (70) | DRG 897 ==
LOC: YASAS 13:19 → Y3N 18:41
PROVIDERS: ADMIT Allergy & Immunology; ATTEND Allergy & Immunology
PROC: HZ2ZZZZ Detoxification Services for Substance Abuse Treatment (ICD-10-PCS; principal; 2021-11-08)
DX: F10.230 Alcohol dependence with withdrawal, uncomplicated (principal); F14.20 Cocaine dependence, uncomplicated; F12.20 Cannabis dependence, uncomplicated; F17.210 Nicotine dependence, cigarettes, uncomplicated; F25.9 Schizoaffective disorder, unspecified; G47.00 Insomnia, unspecified; I10 Essential (primary) hypertension; R63.8 Other symptoms and signs concerning food and fluid intake; Z62.810 Personal history of physical and sexual abuse in childhood; Z88.8 Allergy status to other drugs, medicaments and biological substances
CPT/HCPCS: 36415; 71046-TC-FY; 80053; 80164; 85027; 86780; C9803-CS; U0003; U0005

== ENCOUNTER 2021-11-13 12:42 | Inpatient (IN) | payer OTHER ==
[2021-11-13] MEDS ORDERED: LOPERAMIDE HCL 2 MG CAPSULE PO PRN (14:19)
[2021-11-13] MEDS ORDERED: MAGNESIUM CITRATE 300 ML BOTTLE PO PRN (14:19)
[2021-11-13] MEDS ORDERED: ACETAMINOPHEN 325 MG TABLET (FP) PO PRN (14:19)
[2021-11-13] MEDS ORDERED: guaiFENesin 200 MG/10 ML 10 ML UNIT-DOSE CUPS PO PRN (14:19)
[2021-11-13] MEDS ORDERED: BENZOCAINE/MENTHOL (CHLORASEPTIC ) LOZENGE MM PRN (14:19)
[2021-11-13] MEDS ORDERED: MAGNESIUM HYDROX 2400MG/30ML ORAL SUSPENSION 30 ML CUP PO PRN (14:19)
[2021-11-13] MEDS ORDERED: NICOTINE POLACRILEX 2 MG GUM BUC PRN (14:19)
[2021-11-13] MEDS ORDERED: MAG HYDROX/AL HYDROX/SIMETH 30 ML UNIT-DOSE CUP PO PRN (14:19)
[2021-11-13] MEDS ORDERED: P-EPHED 60MG/TRIPROLIDI 2.5MG TABLET PO PRN (14:19)
[2021-11-13] MEDS: buPROPion HCL 75 MG TABLET PO SCH (15:08)
[2021-11-13] MEDS: NICOTINE 10 MG CARTRIDGE (INHALER) IH PRN (18:39)
[2021-11-13] MEDS: HALOPERIDOL 5 MG TABLET PO SCH (21:20)
[2021-11-13] MEDS: DIVALPROEX SODIUM 500 MG TABLET E.C. PO SCH (21:20)
[2021-11-13] MEDS: traZODone HCL 50 MG TABLET (FP) PO SCH (21:20)
[2021-11-13] MEDS: THIAMINE HCL 100 MG TABLET (FP) PO SCH (21:20)
[2021-11-13] MEDS ORDERED: MELATONIN 5 MG TABLETS PO SCH (22:00)
[2021-11-13] MEDS: TRIHEXYPHENIDYL HCL 2 MG TABLET PO SCH (23:53)
[2021-11-14] MEDS: IBUPROFEN 400 MG TABLET (FP) PO PRN (06:51)
[2021-11-14] MEDS: HALOPERIDOL 5 MG TABLET PO SCH ×2 (10:06→21:37)
[2021-11-14] MEDS: DIVALPROEX SODIUM 250 MG TABLET E.C. PO SCH (10:06)
[2021-11-14] MEDS: PRENATAL VITAMINS W/ FOLIC ACID TABLET (FP) PO SCH (10:06)
[2021-11-14] MEDS: TRIHEXYPHENIDYL HCL 2 MG TABLET PO SCH ×2 (10:06→21:37)
[2021-11-14] MEDS: buPROPion HCL 75 MG TABLET PO SCH ×2 (10:06→15:51)
[2021-11-14] MEDS: amLODIPine BESYLATE 10 MG TABLET (FP) PO SCH (10:06)
[2021-11-14] MEDS: NICOTINE 10 MG CARTRIDGE (INHALER) IH PRN (10:47)
[2021-11-14] MEDS: DIVALPROEX SODIUM 500 MG TABLET E.C. PO SCH (21:37)
[2021-11-14] MEDS: traZODone HCL 50 MG TABLET (FP) PO SCH (21:38)
[2021-11-14] MEDS: THIAMINE HCL 100 MG TABLET (FP) PO SCH (21:38)
[2021-11-15] MEDS: DIVALPROEX SODIUM 250 MG TABLET E.C. PO SCH (10:44)
[2021-11-15] MEDS: amLODIPine BESYLATE 10 MG TABLET (FP) PO SCH (10:44)
[2021-11-15] MEDS: buPROPion HCL 75 MG TABLET PO SCH ×2 (10:44→17:03)
[2021-11-15] MEDS: PRENATAL VITAMINS W/ FOLIC ACID TABLET (FP) PO SCH (10:44)
[2021-11-15] MEDS: TRIHEXYPHENIDYL HCL 2 MG TABLET PO SCH ×2 (10:44→21:16)
[2021-11-15] MEDS: HALOPERIDOL 5 MG TABLET PO SCH ×2 (10:44→22:31)
[2021-11-15] MEDS: IBUPROFEN 400 MG TABLET (FP) PO PRN (17:04)
[2021-11-15] MEDS: THIAMINE HCL 100 MG TABLET (FP) PO SCH (21:16)
[2021-11-15] MEDS: traZODone HCL 50 MG TABLET (FP) PO SCH (21:16)
[2021-11-15] MEDS: DIVALPROEX SODIUM 500 MG TABLET E.C. PO SCH (21:17)
[2021-11-15] MEDS: NICOTINE 10 MG CARTRIDGE (INHALER) IH PRN (22:18)
[2021-11-16 07:27] VITALS: TEMP 97.7
[2021-11-16] MEDS: DIVALPROEX SODIUM 250 MG TABLET E.C. PO SCH (10:06)
[2021-11-16] MEDS: TRIHEXYPHENIDYL HCL 2 MG TABLET PO SCH ×2 (10:06→21:29)
[2021-11-16] MEDS: buPROPion HCL 75 MG TABLET PO SCH ×2 (10:08→15:52)
[2021-11-16] MEDS: amLODIPine BESYLATE 10 MG TABLET (FP) PO SCH (10:08)
[2021-11-16] MEDS: HALOPERIDOL 5 MG TABLET PO SCH ×2 (10:08→21:29)
[2021-11-16] MEDS: PRENATAL VITAMINS W/ FOLIC ACID TABLET (FP) PO SCH (10:08)
[2021-11-16] MEDS: NICOTINE 10 MG CARTRIDGE (INHALER) IH PRN (21:28)
[2021-11-16] MEDS: THIAMINE HCL 100 MG TABLET (FP) PO SCH (21:28)
[2021-11-16] MEDS: traZODone HCL 50 MG TABLET (FP) PO SCH (21:29)
[2021-11-16] MEDS: DIVALPROEX SODIUM 500 MG TABLET E.C. PO SCH (21:29)
[2021-11-17] MEDS: buPROPion HCL 75 MG TABLET PO SCH ×2 (06:17→15:52)
[2021-11-17] MEDS: HALOPERIDOL 5 MG TABLET PO SCH (10:56)
[2021-11-17] MEDS: TRIHEXYPHENIDYL HCL 2 MG TABLET PO SCH (10:56)
[2021-11-17] MEDS: amLODIPine BESYLATE 10 MG TABLET (FP) PO SCH (10:56)
[2021-11-17] MEDS: DIVALPROEX SODIUM 250 MG TABLET E.C. PO SCH (10:56)
[2021-11-17] MEDS: PRENATAL VITAMINS W/ FOLIC ACID TABLET (FP) PO SCH (10:57)
[2021-11-17] MEDS: NICOTINE 10 MG CARTRIDGE (INHALER) IH PRN (10:57)
[2021-11-17 15:38] VITALS: BP 135/80; PULSE 96
[2021-11-17 16:17] LABS: SARS-CoV-2 NAA Not Detected (Not Detected)
== END 2021-11-17 17:49 | disposition left against medical advice (07) | DRG 894 ==
LOC: YASAS 12:42 → Y3W 12:44
PROVIDERS: ADMIT Allergy & Immunology; ATTEND Allergy & Immunology
PROC: HZ42ZZZ Group Counseling for Substance Abuse Treatment, Cognitive-Behavioral (ICD-10-PCS; principal; 2021-11-13)
DX: F10.20 Alcohol dependence, uncomplicated (principal); F14.20 Cocaine dependence, uncomplicated; F12.20 Cannabis dependence, uncomplicated; F17.210 Nicotine dependence, cigarettes, uncomplicated; F25.9 Schizoaffective disorder, unspecified; I10 Essential (primary) hypertension; G40.909 Epilepsy, unspecified, not intractable, without status epilepticus; Z88.8 Allergy status to other drugs, medicaments and biological substances
CPT/HCPCS: C9803-CS; U0003; U0005

== ENCOUNTER 2021-11-30 13:44 | Inpatient (IN) | payer OTHER ==
[2021-11-30] MEDS ORDERED: cloNIDine HCL 0.1 MG TABLET PO ONE (16:33)
[2021-11-30] MEDS ORDERED: DICYCLOMINE HCL 10 MG CAPSULE PO PRN (16:33)
[2021-11-30] MEDS ORDERED: BUPRENORPHINE HCL 150 MCG, BUPRENORPHINE HCL 75 MCG BC PRN (16:33)
[2021-11-30] MEDS ORDERED: NALOXONE HCL (KLOXXADO) 8 MG SPRAY NS PRN (16:33)
[2021-11-30] MEDS ORDERED: BISMUTH SUBSALICYLATE 524 MG/30 ML PO PRN (16:33)
[2021-11-30] MEDS ORDERED: BUPRENORPHINE HCL 150 MCG, BUPRENORPHINE HCL 75 MCG BC ONE (16:33)
[2021-11-30] MEDS ORDERED: MAG HYDROX/AL HYDROX/SIMETH 30 ML UNIT-DOSE CUP PO PRN (16:33)
[2021-11-30] MEDS ORDERED: ACETAMINOPHEN 325 MG TABLET (FP) PO PRN ×2 (16:33)
[2021-11-30] MEDS ORDERED: MAGNESIUM CITRATE 300 ML BOTTLE PO PRN (16:33)
[2021-11-30] MEDS ORDERED: IBUPROFEN 400 MG TABLET (FP) PO PRN (16:33)
[2021-11-30] MEDS ORDERED: MAGNESIUM HYDROX 2400MG/30ML ORAL SUSPENSION 30 ML CUP PO PRN (16:33)
[2021-11-30] MEDS ORDERED: BENZOCAINE/MENTHOL (CHLORASEPTIC ) LOZENGE MM PRN (16:33)
[2021-11-30] MEDS ORDERED: NICOTINE 10 MG CARTRIDGE (INHALER) IH PRN (16:33)
[2021-11-30] MEDS ORDERED: LOPERAMIDE HCL 2 MG CAPSULE PO PRN (16:33)
[2021-11-30] MEDS ORDERED: ONDANSETRON *ODT* 4 MG TABLET SL PRN (16:33)
[2021-11-30 17:44] VITALS: BMI 24.4
[2021-11-30] MEDS ORDERED: BUPRENORPHINE HCL 150 MCG FILM BC ONE (18:36)
[2021-11-30] MEDS ORDERED: BUPRENORPHINE HCL 75 MCG FILM BC ONE (18:37)
[2021-11-30] MEDS ORDERED: cloNIDine HCL 0.1 MG TABLET ONE (18:37)
[2021-11-30] MEDS: NICOTINE 14 MG/24 HOURS TOPICAL PATCH TD SCH (19:39)
[2021-11-30] MEDS: amLODIPine BESYLATE 5 MG TABLET (FP) PO SCH (19:41)
[2021-11-30] MEDS: PRENATAL VITAMINS W/ FOLIC ACID TABLET (FP) PO SCH (19:41)
[2021-11-30] MEDS: hydrOXYzine PAMOATE 25 MG CAPSULE (FP) PO SCH ×2 (19:42→22:46)
[2021-11-30] MEDS ORDERED: cloNIDine HCL 0.1 MG TABLET PO PRN (20:33)
[2021-11-30] MEDS ORDERED: MELATONIN 5 MG TABLETS PO SCH (22:00)
[2021-11-30] MEDS: METHOCARBAMOL 500 MG TABLET PO PRN (22:46)
[2021-11-30] MEDS: THIAMINE HCL 100 MG TABLET (FP) PO SCH (22:46)
[2021-11-30] MEDS: diazePAM 5 MG TABLET PO PRN (22:47)
[2021-12-01] MEDS ORDERED: BUPRENORPHINE HCL 150 MCG, BUPRENORPHINE HCL 75 MCG BC PRN
[2021-12-01] MEDS: BUPRENORPHINE HCL 150 MCG, BUPRENORPHINE HCL 75 MCG BC SCH ×2 (05:44→18:01)
[2021-12-01] MEDS ORDERED: BUPRENORPHINE HCL 75 MCG FILM BC ONE ×2 (05:44→17:17)
[2021-12-01] MEDS ORDERED: BUPRENORPHINE HCL 150 MCG FILM BC ONE ×2 (05:44→17:17)
[2021-12-01] MEDS: hydrOXYzine PAMOATE 25 MG CAPSULE (FP) PO SCH ×3 (05:45→10:57)
[2021-12-01] MEDS: NICOTINE 14 MG/24 HOURS TOPICAL PATCH TD SCH (10:57)
[2021-12-01] MEDS: PRENATAL VITAMINS W/ FOLIC ACID TABLET (FP) PO SCH (10:57)
[2021-12-01] MEDS: amLODIPine BESYLATE 5 MG TABLET (FP) PO SCH (10:57)
[2021-12-01 11:38] LABS: HEMOGLOBIN 12.9 GM/dL (11.7-16.9); MCH 28.7 pg (25.7-33.7); MCHC 33.2 g/dl (32.0-35.9); MEAN CELL VOLUME 86.4 fl (80-96); MEAN PLT VOLUME 7.6 fl (7.5-11.1); PLATELET COUNT 298 10^3/uL (134-434); RBC 4.51 M/mm3 (4.00-5.60); RDW 15.8 % (11.9-15.9); WHITE BLOOD COUNT 3.6 K/mm3 (4.0-10.0)
[2021-12-01 12:18] LABS: CALCIUM 8.6 mg/dL (8.5-10.1)
[2021-12-01 12:19] LABS: ALBUMIN 3.4 g/dl (3.4-5.0)
[2021-12-01 12:22] LABS: CREATININE 1.1 mg/dL (0.55-1.3)
[2021-12-01 12:24] LABS: TOT PROT 6.1 g/dl (6.4-8.2)
[2021-12-01] MEDS: buPROPion HCL 75 MG TABLET PO SCH (18:01)
[2021-12-01] MEDS: METHOCARBAMOL 500 MG TABLET PO PRN (21:34)
[2021-12-01] MEDS: DIVALPROEX SODIUM 500 MG TABLET E.C. PO SCH (22:29)
[2021-12-01] MEDS: THIAMINE HCL 100 MG TABLET (FP) PO SCH (22:29)
[2021-12-01] MEDS: TRIHEXYPHENIDYL HCL 2 MG TABLET PO SCH (22:30)
[2021-12-01] MEDS: HALOPERIDOL 5 MG TABLET PO SCH (22:30)
[2021-12-01] MEDS: diazePAM 5 MG TABLET PO PRN (22:31)
[2021-12-02] MEDS: buPROPion HCL 75 MG TABLET PO SCH ×2 (06:09→16:24)
[2021-12-02] MEDS: BUPRENORPHINE HCL 450 MCG FILM BC SCH ×2 (06:09→18:29)
[2021-12-02] MEDS: diazePAM 5 MG TABLET PO PRN (06:12)
[2021-12-02] MEDS: METHOCARBAMOL 500 MG TABLET PO PRN (06:12)
[2021-12-02] MEDS: PRENATAL VITAMINS W/ FOLIC ACID TABLET (FP) PO SCH (10:28)
[2021-12-02] MEDS: DIVALPROEX SODIUM 250 MG TABLET E.C. PO SCH (10:29)
[2021-12-02] MEDS: amLODIPine BESYLATE 5 MG TABLET (FP) PO SCH (10:29)
[2021-12-02] MEDS: HALOPERIDOL 5 MG TABLET PO SCH ×2 (10:29→23:17)
[2021-12-02] MEDS: TRIHEXYPHENIDYL HCL 2 MG TABLET PO SCH ×2 (10:29→23:17)
[2021-12-02] MEDS: NICOTINE 14 MG/24 HOURS TOPICAL PATCH TD SCH (10:32)
[2021-12-02 15:08] LABS: SARS-CoV-2 NAA Not Detected (Not Detected)
[2021-12-02] MEDS: DIVALPROEX SODIUM 500 MG TABLET E.C. PO SCH (23:17)
[2021-12-02] MEDS: traZODone HCL 50 MG TABLET (FP) PO SCH (23:17)
[2021-12-02] MEDS: THIAMINE HCL 100 MG TABLET (FP) PO SCH (23:17)
[2021-12-03] MEDS: BUPRENORPHINE/NALOXONE 4 MG/1 MG FILM PACKET SL SCH ×2 (05:46→17:56)
[2021-12-03] MEDS: TRIHEXYPHENIDYL HCL 2 MG TABLET PO SCH ×2 (10:37→22:13)
[2021-12-03] MEDS: PRENATAL VITAMINS W/ FOLIC ACID TABLET (FP) PO SCH (10:37)
[2021-12-03] MEDS: amLODIPine BESYLATE 5 MG TABLET (FP) PO SCH (10:37)
[2021-12-03] MEDS: DIVALPROEX SODIUM 250 MG TABLET E.C. PO SCH (10:37)
[2021-12-03] MEDS: NICOTINE 14 MG/24 HOURS TOPICAL PATCH TD SCH (10:38)
[2021-12-03] MEDS: HALOPERIDOL 5 MG TABLET PO SCH ×2 (10:38→22:11)
[2021-12-03] MEDS: METHOCARBAMOL 500 MG TABLET PO PRN ×2 (10:39→22:14)
[2021-12-03] MEDS: traZODone HCL 50 MG TABLET (FP) PO SCH (22:11)
[2021-12-03] MEDS: DIVALPROEX SODIUM 500 MG TABLET E.C. PO SCH (22:11)
[2021-12-03] MEDS: THIAMINE HCL 100 MG TABLET (FP) PO SCH (22:11)
[2021-12-04] MEDS: METHOCARBAMOL 500 MG TABLET PO PRN (04:52)
[2021-12-04] MEDS ORDERED: BUPRENORPHINE/NALOXONE 8 MG/2 MG FILM PACKET SL ONE (06:00)
[2021-12-04 09:13] VITALS: BP 116/68; PULSE 60; TEMP 97.4
[2021-12-04] MEDS: DIVALPROEX SODIUM 250 MG TABLET E.C. PO SCH (10:01)
[2021-12-04] MEDS: amLODIPine BESYLATE 5 MG TABLET (FP) PO SCH (10:01)
[2021-12-04] MEDS: PRENATAL VITAMINS W/ FOLIC ACID TABLET (FP) PO SCH (10:01)
[2021-12-04] MEDS: HALOPERIDOL 5 MG TABLET PO SCH (10:02)
[2021-12-04] MEDS: NICOTINE 14 MG/24 HOURS TOPICAL PATCH TD SCH (10:02)
== END 2021-12-04 10:35 | disposition home or self-care (01) | DRG 897 ==
LOC: YASAS 13:44 → Y3N 17:44 → Y6N 12-03 22:51
PROVIDERS: ADMIT Allergy & Immunology; ATTEND Surgery
PROC: HZ2ZZZZ Detoxification Services for Substance Abuse Treatment (ICD-10-PCS; principal; 2021-11-30)
DX: F11.23 Opioid dependence with withdrawal (principal); F14.20 Cocaine dependence, uncomplicated; F10.230 Alcohol dependence with withdrawal, uncomplicated; F12.20 Cannabis dependence, uncomplicated; F17.210 Nicotine dependence, cigarettes, uncomplicated; F19.24 Other psychoactive substance dependence with psychoactive substance-induced mood disorder; F25.9 Schizoaffective disorder, unspecified; F43.10 Post-traumatic stress disorder, unspecified; G47.00 Insomnia, unspecified; I10 Essential (primary) hypertension; Z62.810 Personal history of physical and sexual abuse in childhood; Z86.69 Personal history of other diseases of the nervous system and sense organs; Z86.11 Personal history of tuberculosis; Z88.8 Allergy status to other drugs, medicaments and biological substances
CPT/HCPCS: 36415; 80053; 80164; 85027; 86780; C9803-CS; J0735; Q0162; U0003; U0005

== ENCOUNTER 2023-01-30 08:05 | Emergency (ER) | payer OTHER ==
[2023-01-30] MEDS ORDERED: DIPHTH,PERTUSS(ACELL),TET 0.5 ML DISP.SYRIN IM ONE ×2 (08:35→08:41)
[2023-01-30] MEDS ORDERED: ACETAMINOPHEN 325 MG TABLET (FP) PO ONE (08:37)
[2023-01-30 08:48] VITALS: BP 117/73; PULSE 76; RESP 16; TEMP 98.1; BMI 27.1
[2023-01-30] MEDS ORDERED: ACETAMINOPHEN 325 MG TABLET (FP) ONE (08:57)
== END 2023-01-30 10:31 | disposition home or self-care (01) ==
LOC: JER 08:05
PROC: 3E0234Z Introduction of Serum, Toxoid and Vaccine into Muscle, Percutaneous Approach (ICD-10-PCS; principal; 2023-01-30)
DX: R22.33 Localized swelling, mass and lump, upper limb, bilateral (principal); Y04.0XXA Assault by unarmed brawl or fight, initial encounter
CPT/HCPCS: 73110-TC-LT-FY; 73110-TC-RT-FY; 73130-TC-LT-FY; 73130-TC-RT-FY; 90471; 90715; 99284-25

== ENCOUNTER 2023-02-23 09:25 | Inpatient (IN) | payer OTHER ==
[2023-02-23 14:17] VITALS: BMI 23.4
[2023-02-23] MEDS ORDERED: guaiFENesin 600 MG TABLET.ER (FP) PO PRN (14:21)
[2023-02-23] MEDS ORDERED: NALOXONE HCL 0.4 MG/ML VIAL IM PRN (14:21)
[2023-02-23] MEDS ORDERED: LOPERAMIDE HCL 2 MG CAPSULE PO PRN (14:21)
[2023-02-23] MEDS ORDERED: MAG HYDROX/AL HYDROX/SIMETH 30 ML UNIT-DOSE CUP PO PRN (14:21)
[2023-02-23] MEDS ORDERED: ACETAMINOPHEN 325 MG TABLET (FP) PO PRN (14:21)
[2023-02-23] MEDS ORDERED: POLYETHYLENE GLYCOL (HEALTHYLAX) 3350 17 GM PACKET PO PRN (14:21)
[2023-02-23] MEDS ORDERED: AMMONIUM LACTATE 12% LOTION 225 GM BOTTLE TP PRN (14:21)
[2023-02-23] MEDS ORDERED: IBUPROFEN 400 MG TABLET (FP) PO PRN (14:21)
[2023-02-23] MEDS ORDERED: NALOXONE HCL (KLOXXADO) 8 MG SPRAY NS PRN (14:21)
[2023-02-23] MEDS ORDERED: BENZONATATE 200 MG CAPSULE PO PRN (14:21)
[2023-02-23] MEDS ORDERED: MAGNESIUM HYDROX 2400MG/30ML ORAL SUSPENSION 30 ML CUP PO PRN (14:21)
[2023-02-23] MEDS ORDERED: BENZOCAINE/MENTHOL (CHLORASEPTIC ) LOZENGE MM PRN (14:21)
[2023-02-23] MEDS ORDERED: IBUPROFEN 600 MG TABLET (FP) PO PRN (14:21)
[2023-02-23] MEDS ORDERED: COLLOIDAL OATMEAL 1 BAR EACH TP PRN (14:21)
[2023-02-23] MEDS ORDERED: TUBERCULIN PPD 5 TU/0.1ML SYRINGE (IN PATIENT USE ONLY) ID ONE (15:30)
[2023-02-23 16:02] VITALS: RESP 18
[2023-02-23 17:47] LABS: HEMATOCRIT 39.4 % (35.4-49); HEMOGLOBIN 13.5 GM/dL (11.7-16.9); MCH 28.4 pg (25.7-33.7); MCHC 34.1 g/dl (32.0-35.9); MEAN CELL VOLUME 83.3 fl (80-96); MEAN PLT VOLUME 7.3 fl (7.5-11.1); PLATELET COUNT 295 10^3/uL (134-434); RBC 4.73 M/mm3 (4.00-5.60); RDW 15.8 % (11.9-15.9); WHITE BLOOD COUNT 4.4 K/mm3 (4.0-10.0)
[2023-02-23 17:49] LABS: POTASSIUM 4.6 mmol/L (3.5-5.1)
[2023-02-23 17:52] LABS: CALCIUM 8.4 mg/dL (8.5-10.1)
[2023-02-23 17:53] LABS: ALBUMIN 3.3 g/dl (3.4-5.0); BLOOD UREA NITROGEN 10.9 mg/dL (7-18)
[2023-02-23 17:56] LABS: CREATININE 0.9 mg/dL (0.55-1.3)
[2023-02-23 17:58] LABS: BILIRUBIN,TOTAL 0.7 mg/dL (0.2-1)
[2023-02-23] MEDS ORDERED: THIAMINE HCL 100 MG TABLET (FP) PO SCH (22:00)
[2023-02-23] MEDS ORDERED: MELATONIN 5 MG TABLETS PO SCH (22:00)
[2023-02-24 07:11] VITALS: BP 149/88; PULSE 60; TEMP 97.8
[2023-02-24] MEDS ORDERED: PRENATAL VITAMINS W/ FOLIC ACID TABLET (FP) PO SCH (10:00)
[2023-02-24] MEDS ORDERED: NICOTINE 14 MG/24 HOURS TOPICAL PATCH TD SCH (10:00)
[2023-02-24 13:45] LABS: EPI CELLS 4 /uL (0-25.1); HYALINE CASTS 30 /uL (0-3.1); PH,URINE 6.5 (5.0-8.0); URINE APPEARANCE CLEAR; URINE BACTERIA 143 /uL (0-1359); URINE BILIRUBIN NEGATIVE (NEGATIVE); URINE COLOR YELLOW; URINE GLUCOSE (UA) NEGATIVE (NEGATIVE); URINE KETONE TRACE (NEGATIVE); URINE LEUK ESTERASE 2+ (NEGATIVE); URINE NITRITE NEGATIVE (NEGATIVE); URINE PROTEIN NEGATIVE (NEGATIVE); URINE RBC 9 /uL (0-23.9); URINE WBC 362 /uL (0-25.8)
== END 2023-02-24 10:17 | disposition left against medical advice (07) | DRG 894 ==
LOC: YASAS 09:25 → Y3W 15:01
PROVIDERS: ADMIT Allergy & Immunology; ATTEND Psychiatry & Neurology Pain Medicine
PROC: HZ42ZZZ Group Counseling for Substance Abuse Treatment, Cognitive-Behavioral (ICD-10-PCS; principal; 2023-02-23)
DX: F10.20 Alcohol dependence, uncomplicated (principal); F14.20 Cocaine dependence, uncomplicated; F19.280 Other psychoactive substance dependence with psychoactive substance-induced anxiety disorder; F19.282 Other psychoactive substance dependence with psychoactive substance-induced sleep disorder; F12.20 Cannabis dependence, uncomplicated; F17.210 Nicotine dependence, cigarettes, uncomplicated; F25.1 Schizoaffective disorder, depressive type; I10 Essential (primary) hypertension; Z86.69 Personal history of other diseases of the nervous system and sense organs; Z88.8 Allergy status to other drugs, medicaments and biological substances
CPT/HCPCS: 36415; 80053; 81003; 85027; 86780; 87635; 87811

== ENCOUNTER 2024-09-19 11:43 | Inpatient (IN) | payer OTHER ==
[2024-09-19 12:56] VITALS: BMI 23.1
[2024-09-19] MEDS ORDERED: POLYETHYLENE GLYCOL (HEALTHYLAX) 3350 17 GM PACKET PO PRN (13:52)
[2024-09-19] MEDS ORDERED: LOPERAMIDE HCL 2 MG CAPSULE PO PRN (13:52)
[2024-09-19] MEDS ORDERED: MAGNESIUM HYDROX 2400MG/30ML ORAL SUSPENSION 30 ML CUP PO PRN (13:52)
[2024-09-19] MEDS ORDERED: BENZOCAINE/MENTHOL (CHLORASEPTIC ) LOZENGE MM PRN (13:52)
[2024-09-19] MEDS ORDERED: IBUPROFEN 400 MG TABLET (FP) PO PRN (13:52)
[2024-09-19] MEDS ORDERED: guaiFENesin 600 MG TABLET.ER (FP) PO PRN (13:52)
[2024-09-19] MEDS ORDERED: MAG HYDROX/AL HYDROX/SIMETH 30 ML UNIT-DOSE CUP PO PRN (13:52)
[2024-09-19] MEDS ORDERED: BENZONATATE 200 MG CAPSULE PO PRN (13:52)
[2024-09-19] MEDS ORDERED: NALOXONE (NARCAN) HCL 4 MG/0.1 ML SPRAY NS PRN (13:52)
[2024-09-19] MEDS: IBUPROFEN 600 MG TABLET (FP) PO PRN (14:36)
[2024-09-19] MEDS: ACETAMINOPHEN 325 MG TABLET (FP) PO PRN (15:28)
[2024-09-19] MEDS: SULFAMETHOXAZOLE/TRIMETHOPRIM 800MG/160MG D.S. TABLET PO SCH (15:28)
[2024-09-19] MEDS: amLODIPine BESYLATE 10 MG TABLET (FP) PO SCH (15:28)
[2024-09-19] MEDS: traZODone HCL 50 MG TABLET (FP) PO ONE (22:53)
[2024-09-19] MEDS: THIAMINE 100 MG TABLET PO SCH (22:53)
[2024-09-20 00:06] LABS: EPI CELLS 20 /uL (0-25.1); HYALINE CASTS 5 /uL (0-3.1); PH,URINE 6.5 (5.0-8.0); URINE APPEARANCE CLEAR; URINE BACTERIA 6 /uL (0-1359); URINE BILIRUBIN NEGATIVE (NEGATIVE); URINE COLOR YELLOW; URINE GLUCOSE (UA) TRACE (NEGATIVE); URINE KETONE NEGATIVE (NEGATIVE); URINE LEUK ESTERASE 1+ (NEGATIVE); URINE NITRITE NEGATIVE (NEGATIVE); URINE PROTEIN NEGATIVE (NEGATIVE); URINE RBC 15 /uL (0-23.9); URINE WBC 160 /uL (0-25.8)
[2024-09-20] MEDS: PRENATAL VITAMINS W/ FOLIC ACID TABLET (FP) PO SCH (09:25)
[2024-09-20 11:30] LABS: HEMATOCRIT 42.1 % (35.4-49); HEMOGLOBIN 14.2 GM/dL (11.7-16.9); MCH 28.6 pg (25.7-33.7); MCHC 33.6 g/dl (32.0-35.9); MEAN CELL VOLUME 85.2 fl (80-96); MEAN PLT VOLUME 7.3 fl (7.5-11.1); PLATELET COUNT 383 10^3/uL (134-434); RBC 4.94 M/mm3 (4.00-5.60); RDW 15.9 % (11.9-15.9)
[2024-09-20 11:34] LABS: POTASSIUM 4.3 mmol/L (3.5-5.1)
[2024-09-20 11:37] LABS: BLOOD UREA NITROGEN 10.9 mg/dL (7-18); CALCIUM 9.2 mg/dL (8.5-10.1)
[2024-09-20 11:40] LABS: ALBUMIN 3.7 g/dl (3.4-5.0)
[2024-09-20 11:41] LABS: CREATININE 0.8 mg/dL (0.55-1.3)
[2024-09-20 11:43] LABS: TOT PROT 7.9 g/dl (6.4-8.2)
[2024-09-20] MEDS: TRIHEXYPHENIDYL HCL 2 MG TABLET PO SCH (13:41)
[2024-09-20] MEDS: HALOPERIDOL 5 MG TABLET PO SCH (13:41)
[2024-09-20] MEDS: traZODone HCL 50 MG TABLET (FP) PO SCH (21:33)
[2024-09-22 07:59] VITALS: RESP 17; TEMP 97.5
[2024-09-22] MEDS: traZODone HCL 50 MG TABLET (FP) PO SCH (21:09)
[2024-09-23 09:28] VITALS: BP 134/76; PULSE 83
[2024-09-24] MEDS ORDERED: metFORMIN HCL 500 MG TABLET (FP) PO SCH (07:00)
== END 2024-09-23 13:32 | disposition left against medical advice (07) | DRG 770 ==
LOC: YASAS 11:43 → Y3NR 14:14 → Y3W 09-20 09:45
PROVIDERS: ADMIT Psychiatry & Neurology Pain Medicine; ATTEND Psychiatry & Neurology Pain Medicine
PROC: HZ42ZZZ Group Counseling for Substance Abuse Treatment, Cognitive-Behavioral (ICD-10-PCS; principal; 2024-09-19)
DX: F10.20 Alcohol dependence, uncomplicated (principal); F14.20 Cocaine dependence, uncomplicated; F16.20 Hallucinogen dependence, uncomplicated; F12.20 Cannabis dependence, uncomplicated; F19.282 Other psychoactive substance dependence with psychoactive substance-induced sleep disorder; F25.1 Schizoaffective disorder, depressive type; I10 Essential (primary) hypertension; E11.9 Type 2 diabetes mellitus without complications; Z79.84 Long term (current) use of oral hypoglycemic drugs; Z87.891 Personal history of nicotine dependence; Z88.8 Allergy status to other drugs, medicaments and biological substances
CPT/HCPCS: 36415; 71045-TC-FY; 80048; 80053; 80164; 80305; 80307; 81003; 82962; 83735; 84484; 85025; 85027; 86780; 87811; 93005; 93010; 99285-25